=== PATIENT | male | born 1995 | race Hispanic/Latino ===

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

== ENCOUNTER 2017-07-09 12:44 | Outpatient (CLI) | payer OTHER ==
[2017-07-09 13:05] LABS: Amphetamine Not Detected (NotDetected); Barbiturates Screen Not Detected (NotDetected); Benzodiazepine Screen Not Detected (NotDetected); Cocaine Metabolite Screen Not Detected (NotDetected); Medtox Control Line Valid? VALID (VALID); Methadone Not Detected (NotDetected); Methamphetamine Not Detected (NotDetected); Opiate Screen Not Detected (NotDetected); Oxycodone Screen Not Detected (NotDetected); Phencyclidine (PCP) Not Detected (NotDetected); THC/Cannabinoid Screen Not Detected (NotDetected); Tricyclic Screen Not Detected (NotDetected)
== END 2017-07-09 12:45 | disposition home or self-care (01) ==
LOC: NAV LAB 12:44
DX: Z00.00 Encounter for general adult medical examination without abnormal findings (principal)
CPT/HCPCS: 80306

== ENCOUNTER 2020-01-22 10:43 | Outpatient (CLI) | payer BC ==
--- NOTE | 2020-01-22 12:17 | RAD ---
PA CHEST AND RIGHT RIBS: A total of 4 views: HISTORY: Chest wall pain. FINDINGS: Lungs are clear on the PA chest exam. Heart and mediastinum appear normal. Right ribs appear intact . No fracture or rib lesion identified. 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 IMPRESSION: No acute finding. POS: [facility]
== END 2020-01-22 10:44 | disposition home or self-care (01) ==
LOC: NAV RAD 10:43
PROVIDERS: ATTEND Internal Medicine
DX: R07.89 Other chest pain (principal)

== ENCOUNTER 2020-05-28 17:06 | Emergency (ER) | payer BC, OTHER ==
[2020-05-28] MEDS ORDERED: Tetracaine HCl 0.5% Ophth Soln 2 ML Bottle ONE (17:25)
[2020-05-28] MEDS ORDERED: Sodium Chloride 0.9% 500 ML ONE (17:29)
[2020-05-28] MEDS ORDERED: Erythromycin Base 0.5% Oint 1 GM TUBE ONE (17:34)
== END 2020-05-28 17:55 | disposition home or self-care (01) ==
LOC: NAV ERS 17:06
DX: S05.02XA Injury of conjunctiva and corneal abrasion without foreign body, left eye, initial encounter (principal); W22.8XXA Striking against or struck by other objects, initial encounter
CPT/HCPCS: 99283; J7030

== ENCOUNTER 2020-06-17 13:26 | Emergency (ER) | payer BC, OTHER ==
[2020-06-18 14:24] LABS: SARS-CoV-2 MS2 Positive; SARS-CoV-2 N Gene Negative; SARS-CoV-2 S Gene Negative; SARS-CoV-2 orf1ab Negative
== END 2020-06-17 14:14 | disposition home or self-care (01) ==
LOC: NAV ERS 13:26
DX: Z20.828 Contact with and (suspected) exposure to other viral communicable diseases (principal)
CPT/HCPCS: 87635; 99283; U0003

== ENCOUNTER 2023-01-29 18:31 | Emergency (ER) | payer BC ==
[2023-01-29] MEDS ORDERED: Bupivacaine 0.5% 10 ML VIAL ONE (18:48)
[2023-01-29] MEDS ORDERED: Lidocaine 1% (PF) 30 ML VIAL ONE (18:48)
== END 2023-01-29 20:50 | disposition home or self-care (01) ==
LOC: NAV ERS 18:31
DX: S62.617A Displaced fracture of proximal phalanx of left little finger, initial encounter for closed fracture (principal); F17.210 Nicotine dependence, cigarettes, uncomplicated; W21.01XA Struck by football, initial encounter; Y93.61 Activity, american tackle football
CPT/HCPCS: 26770; J2001; J3490